=== PATIENT | male | born 1985 | race Two or more races ===

== ENCOUNTER 2017-06-08 18:02 | Emergency (ER) | payer SELFPAY ==
[~2017-06-08] VITALS: Ht 172.7 cm; Wt 72.6 kg
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
--- NOTE | 2017-06-08 18:15 | NUR ---
JEFFREY RAPHAEL AT BEDSIDE FOR EVAL.
[2017-06-08 18:35] LABS: BASOPHILS % (AUTO) 0.4 % (0.0-2.0); EOSINOPHILS % (AUTO) 0.2 % (0.0-6.0); HEMATOCRIT 45 % (39-51); HEMOGLOBIN 15.3 g/dL (13.5-17.5); LYMPHOCYTES # (AUTO) 0.5 /CMM (0.8-4.8); LYMPHOCYTES % (AUTO) 5.6 % (20.0-44.0); MEAN CORPUSCULAR HEMOGLOBIN 31 PG (26.0-33.0); MEAN CORPUSCULAR HGB CONC 34 g/dl (31.0-36.0); MEAN CORPUSCULAR VOLUME 92 fL (80-96); MONOCYTES # (AUTO) 0.7 /CMM (0.1-1.30); MONOCYTES % (AUTO) 7.9 % (2.0-12.0); NEUTROPHILS # (AUTO) 7.5 /CMM (1.8-8.9); NEUTROPHILS % (AUTO) 85.9 % (43.0-81.0); PLATELET COUNT (AUTO) 208 /CMM (150-450); RDW COEFFICIENT OF VARIATION 12.8 (11.5-15.0); RED BLOOD CELL COUNT(AUTO) 4.95 MIL/uL (4.5-6.0); WHITE BLOOD COUNT (AUTO) 8.7 K/uL (4.3-11.0)
[2017-06-08 18:48] LABS: CALCIUM, SERUM 9.8 mg/dL (8.5-10.1); CREATININE 1.3 mg/dL (0.6-1.3); POTASSIUM 3.8 mmol/L (3.5-5.1)
--- NOTE | 2017-06-08 18:52 | NUR ---
PT TO RADIOLOGY FOR HEAD CT SCAN VIA WHEELCHAIR.
[2017-06-08 18:56] LABS: BILIRUBIN,TOTAL 0.7 mg/dL (0.2-1.0)
[2017-06-08 18:57] LABS: ALBUMIN 4.2 g/dL (3.4-5.0); TOTAL PROTEIN, SERUM 9.2 g/dL (6.4-8.2)
[2017-06-08] MEDS ORDERED: LORAZEPAM 1 MG TABLET PO ONE (19:30)
[2017-06-08] MEDS ORDERED: LORAZEPAM 1 MG TABLET ONE (19:44)
--- NOTE | 2017-06-08 20:59 | NUR ---
Patient discharged to home in stable condition. Written and verbal after care instructions given. Patient verbalizes understanding of instruction.IV removed. Catheter intact and site benign. Pressure and 4x4 applied to site. No bleeding noted.
[2017-06-08 21:01] VITALS: BP 154/87
== END 2017-06-08 21:02 | disposition home or self-care (01) ==
LOC: ER 18:03
DX: R56.9 Unspecified convulsions (principal); R94.5 Abnormal results of liver function studies
CPT/HCPCS: 36415; 70450; 80053; 85025; 93005; 99285; A4606; G0480; Z7610

== ENCOUNTER 2018-06-11 12:29 | Emergency (ER) | payer SELFPAY ==
[~2018-06-11] VITALS: Ht 175.3 cm; Wt 74.8 kg
--- NOTE | 2018-06-11 12:36 | NUR ---
WHITNEY, RECEIVED A&0X3, TOELRATING ROOM AIR WITHOUT DISTRESS AND DENIES PAIN OR DISCOMFORT. PT WITH IVC AT R AC INTACT AND SALINE FLUSH PATENT. SEIZURE PRECAUTIONS IN PLACE. PT SEEN BY MD, AWAITING ORDERS.
[2018-06-11] MEDS ORDERED: LORAZEPAM INJ 2 MG/ML VIAL ONE (12:41)
[2018-06-11 12:52] LABS: BASOPHILS # (AUTO) 0.1 /CMM (0.0-0.2); EOSINOPHILS % (AUTO) 0.1 % (0.0-6.0); HEMATOCRIT 30 % (39-51); HEMOGLOBIN 9.1 g/dL (13.5-17.5); LYMPHOCYTES # (AUTO) 1.7 /CMM (0.8-4.8); LYMPHOCYTES % (AUTO) 27.4 % (20.0-44.0); MEAN CORPUSCULAR HGB CONC 31 g/dl (31.0-36.0); MEAN CORPUSCULAR VOLUME 72 fL (80-96); MONOCYTES # (AUTO) 0.8 /CMM (0.1-1.30); MONOCYTES % (AUTO) 12.6 % (2.0-12.0); NEUTROPHILS # (AUTO) 3.6 /CMM (1.8-8.9); NEUTROPHILS % (AUTO) 58.9 % (43.0-81.0); PLATELET COUNT (AUTO) 194 /CMM (150-450); RED BLOOD CELL COUNT(AUTO) 4.19 MIL/uL (4.5-6.0)
[2018-06-11] MEDS ORDERED: LORAZEPAM INJ 2 MG/ML VIAL IVP ONE (13:00)
[2018-06-11 13:07] LABS: ALCOHOL, BLOOD < 3 mg/dL (0-0); CALCIUM, SERUM 9.4 mg/dL (8.5-10.1); CARBON DIOXIDE 19 mmol/L (21-32); CHLORIDE 95 mmol/L (98-107); CREATININE 1.2 mg/dL (0.6-1.3); GLUCOSE 146 mg/dL (74-106); POTASSIUM 3.6 mmol/L (3.5-5.1); SODIUM SERUM 134 mmol/L (136-145); UREA NITROGEN, BLOOD 5 mg/dL (7-18)
[2018-06-11 14:05] VITALS: BP 138/81
--- NOTE | 2018-06-11 14:35 | NUR ---
IV removed. Catheter intact and site benign. Pressure and 4x4 applied to site. No bleeding noted.Patient discharged to home in stable condition. Written and verbal after care instructions given. Patient verbalizes understanding of instruction.
[2018-06-11 16:01] LABS: LYMPHOCYTES % (MANUAL) 10 % (16-48); MONOCYTES % (MANUAL) 10 % (0-11.0); MYELOCYTES % 1 % (0-0); NEUTROPHILS % (MANUAL) 79 (42-76)
== END 2018-06-11 15:00 | disposition home or self-care (01) ==
LOC: ER 12:30
DX: R56.9 Unspecified convulsions (principal); F10.10 Alcohol abuse, uncomplicated
CPT/HCPCS: 36415; 70450-TC; 80048-TC; 85025-TC; G0480; J2060